=== PATIENT | female | born 1960 | race Caucasian/White ===

== ENCOUNTER 2022-01-12 16:35 | Emergency (ER) | payer BC, OTHER ==
[2022-01-12 16:53] VITALS: TEMP 98.6; BMI 25.7
[2022-01-12 18:16] LABS: EOS % 1.6 % (0-4.5); HEMATOCRIT 42.5 % (32.4-45.2); HEMOGLOBIN 14.8 GM/dL (10.7-15.3); LYMPH % 22.4 % (8-40); MCH 31.8 pg (25.7-33.7); MCHC 34.9 g/dl (32.0-36.0); MEAN CELL VOLUME 91.2 fl (80-96); MEAN PLT VOLUME 8.7 fl (7.5-11.1); MONO % 10.1 % (3.8-10.2); NEUT % 64.9 % (42.8-82.8); PLATELET COUNT 195 10^3/uL (134-434); RBC 4.66 M/mm3 (3.60-5.2); RDW 12.8 % (11.6-15.6); WHITE BLOOD COUNT 7.7 K/mm3 (4.0-10.0)
[2022-01-12 18:34] LABS: CALCIUM 9.6 mg/dL (8.5-10.1)
[2022-01-12 18:35] LABS: BLOOD UREA NITROGEN 14.1 mg/dL (7-18)
[2022-01-12 18:38] LABS: CREATININE 0.8 mg/dL (0.55-1.3)
[2022-01-12 18:40] LABS: BILIRUBIN,TOTAL 0.5 mg/dL (0.2-1)
[2022-01-12] MEDS ORDERED: CARVEDILOL 6.25 MG TABLET (FP) PO ONE (19:33)
[2022-01-12] MEDS ORDERED: CARVEDILOL 6.25 MG TABLET (FP) ONE (19:34)
[2022-01-12 19:56] VITALS: BP 149/93; PULSE 85
== END 2022-01-12 20:00 | disposition home or self-care (01) ==
LOC: JER 16:35
DX: R07.9 Chest pain, unspecified (principal)
CPT/HCPCS: 36415; 71045-TC-FY; 80053; 84484; 85025; 93005; 93010; 99285-25

== ENCOUNTER 2022-01-20 10:27 | Observation (INO) | payer BC, OTHER ==
[2022-01-20 11:48] LABS: BASO % 0.9 % (0-2.0); EOS % 4.7 % (0-4.5); HEMATOCRIT 42.3 % (32.4-45.2); HEMOGLOBIN 14.4 GM/dL (10.7-15.3); LYMPH % 26.5 % (8-40); MCH 31.6 pg (25.7-33.7); MCHC 34.1 g/dl (32.0-36.0); MEAN CELL VOLUME 92.8 fl (80-96); MEAN PLT VOLUME 8.8 fl (7.5-11.1); MONO % 8.6 % (3.8-10.2); NEUT % 59.3 % (42.8-82.8); PLATELET COUNT 180 10^3/uL (134-434); RBC 4.55 M/mm3 (3.60-5.2); RDW 12.7 % (11.6-15.6); WHITE BLOOD COUNT 5.6 K/mm3 (4.0-10.0)
[2022-01-20 12:06] LABS: ALBUMIN 3.6 g/dl (3.4-5.0)
[2022-01-20 12:07] LABS: BLOOD UREA NITROGEN 10.8 mg/dL (7-18)
[2022-01-20 12:10] LABS: CREATININE 0.8 mg/dL (0.55-1.3)
[2022-01-20 12:11] LABS: BILIRUBIN,TOTAL 0.9 mg/dL (0.2-1); TOT PROT 6.5 g/dl (6.4-8.2)
[2022-01-20] MEDS ORDERED: ASPIRIN COATED 81 MG TABLET.EC ONE (14:19)
[2022-01-20] MEDS: ASPIRIN COATED 81 MG TABLET.EC PO SCH (14:24)
[2022-01-20 19:30] VITALS: BMI 26.6
[2022-01-20] MEDS: CARVEDILOL 6.25 MG TABLET (FP) PO SCH (21:18)
[2022-01-21 07:20] LABS: ALBUMIN 3.8 g/dl (3.4-5.0); BLOOD UREA NITROGEN 12.4 mg/dL (7-18); CALCIUM 9.2 mg/dL (8.5-10.1); MAGNESIUM 2.3 mg/dL (1.8-2.4)
[2022-01-21 07:23] LABS: CREATININE 0.6 mg/dL (0.55-1.3)
[2022-01-21 07:25] LABS: BILIRUBIN,TOTAL 1.2 mg/dL (0.2-1); TOT PROT 6.6 g/dl (6.4-8.2)
[2022-01-21 07:51] LABS: HEMOGLOBIN 14.7 GM/dL (10.7-15.3); MCH 31.1 pg (25.7-33.7); MCHC 33.5 g/dl (32.0-36.0); MEAN CELL VOLUME 92.8 fl (80-96); MEAN PLT VOLUME 9.1 fl (7.5-11.1); MONO % 9.5 % (3.8-10.2); NEUT % 55.5 % (42.8-82.8); PLATELET COUNT 189 10^3/uL (134-434); RBC 4.74 M/mm3 (3.60-5.2); RDW 12.7 % (11.6-15.6)
[2022-01-21] MEDS: ASPIRIN COATED 81 MG TABLET.EC PO SCH (09:09)
[2022-01-21] MEDS ORDERED: CARVEDILOL 6.25 MG TABLET (FP) PO SCH (12:33)
[2022-01-21] MEDS: CARVEDILOL 6.25 MG TABLET (FP) PO SCH (12:54)
[2022-01-21 14:59] VITALS: BP 148/93; PULSE 81; TEMP 97.5
== END 2022-01-21 14:20 | disposition home or self-care (01) ==
LOC: JER 10:27 → JERBED 13:32 → J4W 17:26
PROVIDERS: ADMIT Internal Medicine; ATTEND Internal Medicine
DX: R07.9 Chest pain, unspecified (principal); I16.0 Hypertensive urgency; H65.00 Acute serous otitis media, unspecified ear; H81.10 Benign paroxysmal vertigo, unspecified ear; E78.00 Pure hypercholesterolemia, unspecified; R06.09 Other forms of dyspnea; E88.09 Other disorders of plasma-protein metabolism, not elsewhere classified; R07.2 Precordial pain; Z86.16 Personal history of COVID-19
CPT/HCPCS: 36415; 71045-TC-FY; 80053; 80061; 83735; 84484; 85025; 93005; 93010; 99285-25; C9803-CS; G0378; U0003; U0005